=== PATIENT | female | born 1965 | race African-American/Black ===

== ENCOUNTER → 2022-06-26 09:25 | Outpatient (CLI) | payer OTHER, SELFPAY ==
[2022-06-26 10:39] LABS: COVID19 -Nasal RAPID Negative (Negative)
== END ==
PROVIDERS: PCP Family Medicine; Visit Provider Surgery
DX: Z20.822 Contact with and (suspected) exposure to COVID-19 (principal); Z01.812 Encounter for preprocedural laboratory examination
CPT/HCPCS: 87635; C9803

== ENCOUNTER 2022-06-27 10:48 | Day surgery (SDC) | payer OTHER, SELFPAY ==
--- NOTE | 2022-06-27 | PATH_ITS ---
[facility] Accession Number: [id number] . 01 Material submitted: . colon - CECUM POLYP . 01 Diagnosis: Cecal Polyp, Biopsy: Tubulovillous adenoma. No high-grade dysplasia or malignancy. [facility] 07/02/2022 1649 Local . 01 Electronically signed: . Destiny Aj MD, Pathologist NPI- [id number] . 01 Gross description: . CECUM POLYP: Received in formalin are 2 fragment(s) of mcginnis, soft tissue measuring 0.7 x 0.5 x 0.3 cm to 0.4 x 0.3 x 0.1 cm submitted entirely in 1 cassette(s) /CPE 06/29/2022 0550 Local . 01 Pathologist provided ICD-10: D12.0 . 01 CPT . 582760 Performed at: 01 [facility] [address] [place] [address] [id number] MD Hernandez Perry MD Phone: [phone]
[2022-06-27 11:21] VITALS: BMI 32.3
--- NOTE | 2022-06-27 11:21 | P.HP_ITS ---
History of Present Illness History of Present Illness Date Patient Seen: 06/27/22 Time Patient Seen: 11:21 Chief complaint: DX COLONOSCOPY W/POSS BX Narrative: I reviewed my recent office note. No significant changes. Patient History Medical History Colon polyps Hiatal hernia Hypertension Lump of right breast Migraine Surgical History History of cholecystectomy History of myomectomy Meds Home Medications and Allergies Home Medications Medication Instructions Recorded Confirmed Type amlodipine 5 mg tablet 5 mg PO DAILY 06/27/22 06/27/22 History aspirin 81 mg capsule 81 mg PO DAILY 06/27/22 06/27/22 History losartan 100 mg tablet 100 mg PO DAILY 06/27/22 06/27/22 History Allergies Allergy/AdvReac Type Severity Reaction Status Date / Time No Known Drug Allergies Allergy Verified 06/27/22 11:14 Review of Systems Review of Systems ROS: Yes All systems reviewed with the patient and are negative except as otherwise documented Exam Const General: cooperative HENMT Head: normal to inspection Eyes General: appearance normal, both eyes and all related structures Neck Neck: normal visual inspection Chest Chest: normal inspection of the chest Resp Effort & Inspection: normal respiratory effort Cardio Rate: regular rate GI Inspection: normal to inspection Skin General: no rashes or lesions noted Neuro General: patient alert and patient awake Extrem General: normal to inspection and no pedal edema Psych Appearance: grossly normal Assessment & Plan Assessment & Plan narrative: 57-year-old female with a large cecal tubulovillous adenoma due for surveill ance. Colonoscopy is planned for today. Time Spent With Patient Critical Care time: I spent a total of [] minutes of critical care time on this patient's care today; this time is exclusive of procedural time.
--- NOTE | 2022-06-27 11:23 | PM.PREOP ---
Pre-operative Note COVID-19 COVID-19 status: Negative Result date/Date tested (Pos, Neg/Pending): 06/26/22 Criteria for continued procedure: Possibility delay results in more complex future surgery or treatment Interval Note History & Physical reviewed/Exam performed by Physician: Yes Changes to H&P: No ASA Class (for procedural sedation): II
[2022-06-27 11:29] VITALS: BP 111/78; PULSE 65; RESP 20; TEMP 36.6; O2SAT 100
[2022-06-27] MEDS: SODIUM CHLORIDE 0.9% 1,000 ML 84 ML IV (11:41)
--- NOTE | 2022-06-27 13:01 | PM.OP.COLON ---
Operative Date/Time/Diagnoses Date of procedure: 06/27/22 Time of procedure: 13:01 Pre-op diagnosis: History of cecal tubulovillous adenoma Post-op diagnosis: same Procedure & Clinicians Study performed: Colonoscopy with hot snare polypectomy Same procedure as scheduled: Yes Indications: History of cecal tubulovillous adenoma Surgeon: Irving Sharpe Procedure Notes SCOAP/Timeout: Done Procedure in detail: After the risks and benefits were explained, written and verbal informed consent was obtained. The patient was brought into the procedure room and placed into the left lateral decubitus position. Please see nurse hse coordinator notes for sedation details. Digital rectal examination was accomplished. The scope was introduced into the patient and advanced under direct visualization to the cecum as identified by the appendiceal orifice and ileocecal valve. The scope was slowly withdrawn to carefully examine the mucosa for any defects or lesions. Comprehensive imaging was accomplished throughout the rectum including the dentate line. The colon was decompressed, the scope was then removed from the patient who tolerated the procedure well. Adult colonoscope Bowel prep adequate Scope withdrawal time: 11 minutes Sedation minutes: 20 Complications: none Impression: There was a 7-8 mm sessile residual polyp in the cecum adjacent prior scarring. This was removed with hot snare polypectomy. Obvious tattoo placement was noted in the cecum. No additional mucosal pathology appreciated there or elsewhere. Mild internal hemorrhoids noted. Endoscopic diagnosis 1. Cecal polyp 2. Grade 1 internal hemorrhoids Post-procedure Plan for aftercare: 1. Await histopathology. 2. Repeat colonoscopy 3 years Disposition: PACU
[2022-06-27 13:06] VITALS: BP 127/82; PULSE 78; RESP 16; TEMP 36.6; O2SAT 99
[2022-06-27 13:11] VITALS: BP 128/80; PULSE 75; RESP 16; O2SAT 99
[2022-06-27 13:16] VITALS: BP 130/78; PULSE 74; RESP 16; O2SAT 99
[2022-06-27 13:25] VITALS: BP 128/68; PULSE 75; RESP 16; O2SAT 99
== END 2022-06-27 13:30 | disposition home or self-care (01) ==
PROVIDERS: PCP Family Medicine; Referring Provider Internal Medicine Gastroenterology; Visit Provider Internal Medicine Gastroenterology
PROC: 0DJD8ZZ Inspection of Lower Intestinal Tract, Via Natural or Artificial Opening Endoscopic (ICD-10-PCS; CPT 45378; principal; 2022-06-27 12:30)
DX: Z12.11 Encounter for screening for malignant neoplasm of colon (principal); Z86.010 Personal history of colon polyps; K64.0 First degree hemorrhoids; D12.0 Benign neoplasm of cecum
CPT/HCPCS: 45385; J1200; J2704

== ENCOUNTER 2022-12-15 09:09 | Emergency (ER) | payer OTHER, SELFPAY ==
[2022-12-15 09:10] VITALS: BP 184/99; PULSE 75; RESP 18; TEMP 36.4; O2SAT 99; BMI 32.9
[2022-12-15 09:15] VITALS: BP 184/99; PULSE 74; O2SAT 96
[2022-12-15 09:30] VITALS: PULSE 68; O2SAT 98
[2022-12-15 09:33] VITALS: BP 156/84; PULSE 59; O2SAT 99
--- NOTE | 2022-12-15 09:49 | ED.ABDPAIN ---
HPI - Abdominal Pain General Chief Complaint: Abdominal Pain Stated Complaint: stomach cramping x2wks; bloating Time Seen by Provider: 12/15/22 09:49 Source: patient Mode of arrival: Ambulatory Limitations: no limitations History of Present Illness HPI narrative: This is a 57-year-old female with history of hypertension on losartan and amlodipine, prior fibroids with prior myomectomy, embolization, polyp removal on colonoscopy with complaint of bloating and abdominal discomfort for 1-2 weeks. Patient states she is not really painful but she feels bloated and very full she denies fevers or chills. She is had some nausea but no vomiting. She denies chest pain or shortness of breath. Patient states she is been having bowel movements she did have some episodes of diarrhea last Saturday and had 1 episode yesterday. She is not been having any black or bloody stools she has not been having persistent or regular diarrhea for the last 1-2 weeks. She has noticed some frequency sense of decreased amount of urine but urinating more frequently. She denies urgency. She is had a little bit of dysuria. She states there has been some discomfort in the vaginal area but no discharge. No vaginal bleeding. Patient states no tobacco, alcohol 1 glass nightly, no illicit. She currently follows with Dr. Rothman for primary care. Related Data Home Medications Medication Instructions Recorded Confirmed amlodipine 5 mg tablet 5 mg PO DAILY 06/27/22 12/15/22 losartan 100 mg tablet 100 mg PO DAILY 06/27/22 12/15/22 Allergies Allergy/AdvReac Type Severity Reaction Status Date / Time No Known Drug Allergies Allergy Verified 12/15/22 09:22 Review of Systems Review of Systems ROS Unobtainable: All systems reviewed & are unremarkable except as noted in HPI and below Patient History Medical History Colon polyps Hiatal hernia Hypertension Lump of right breast Migraine Surgical History History of cholecystectomy History of myomectomy Social History household members: none Smoking Status: Never smoker alcohol intake: current Smoking Status: Never smoker alcohol intake frequency: a few times a week Substance Use Type: does not use Exam Narrative Exam Narrative: GENERAL: Alert and oriented x three, well-appearing female in mild distress. HEENT: Head normocephalic, atraumatic, EOMI, pupils reactive, face symmetric, moist mucous membranes NECK: Supple, full range of motion CARDIOVASCULAR: Regular rate and rhythm without murmurs, rubs or gallops. RESPIRATORY: Breath sounds equal bilaterally, no wheezes rales or rhonchi. ABDOMEN: Soft, nontender. Mildly distended. Normoactive bowel sounds all 4 quadrants. No guarding or rebound, rigidity, no mass, no bruit or pulsatile mass. : No CVA tenderness bilaterally. EXTREMITIES: Normal range of motion, no clubbing or edema. Neurovascularly intact NEUROLOGICAL: Cranial nerves II through XII grossly intact. Moving all extremities SKIN: Warm, dry, no petechiae, no rashes or lesions. Initial Vital Signs Initial Vital Signs: Vital Signs Temperature 97.6 F 12/15/22 09:10 Pulse Rate 75 12/15/22 09:10 Respiratory Rate 18 12/15/22 09:10 Blood Pressure 184/99 H 12/15/22 09:10 Pulse Oximetry 99 12/15/22 09:10 Oxygen Delivery Method Room Air 12/15/22 09:10 Course Orders Ordered: Discontinued Medications Methylprednisolone (Methylprednisolone 125 Mg/2 Ml Vial) 125 mg IV NOW ONE Stop: 12/15/22 12:33 Morphine Sulfate (Morphine 4 Mg/Ml Inj) 4 mg IV NOW ONE Stop: 12/15/22 12:33 Ondansetron HCl (Ondansetron 4 Mg/2 Ml Inj) 4 mg IV NOW PRN PRN Reason: Nausea And Vomiting Vital Signs Vital signs: Vital Signs - 8 hr 12/15/22 09:10 Temperature 97.6 F Pulse Rate 75 Respiratory Rate 18 Blood Pressure 184/99 H Pulse Oximetry 99 Oxygen Delivery Method Room Air MDM - Abdominal Pain Lab Data 12/15/22 09:50 12/15/22 09:50 Labs: Lab Results 12/15/22 12/15/22 Range/Units 09:50 09:50 WBC 7.6 (4.5-11.0) X10^3/uL RBC 4.63 (4.0-5.2) X10^6/uL Hgb 14.4 (12.0-16.0) g/dL Hct 42.6 (36-46) % MCV 92.1 (80-100) fL MCH 31.0 (26-34) PG MCHC 33.7 (30-36) % RDW 14.0 (11.6-14.8) % Plt Count 212 (150-400) X10^3/uL Neut % (Auto) 73.3 (50-75) % Lymph % (Auto) 18.9 L (25-40) % [place] % (Auto) 6.8 (3-14) % Eos % (Auto) 0.6 L (2-4) % Baso % (Auto) 0.4 (0-2) % Neut # (Auto) 5600 (0467-0539) /uL Lymph # (Auto) 1400 (8296-8842) /uL [place] # (Auto) 500 (0-900) /uL Eos # (Auto) 0 (0-450) /uL Baso # (Auto) 0 (0-100) /uL Sodium 136 L (137-145) mmol/L Potassium 4.2 (3.4-5.1) mmol/L Chloride 104 (98-107) mmol/L Carbon Dioxide 28 (22-32) mmol/L BUN 10 (7-17) mg/dL Creatinine 0.58 (0.52-1.04) mg/dL Estimated GFR > 60 (>60) mL/min BUN/Creatinine Ratio 17.2 (6-22) Glucose 84 (70-100) mg/dL Calcium 8.9 (8.4-10.2) mg/dL Total Bilirubin 0.7 (0.2-1.3) mg/dL AST 34 (14-36) IU/L ALT 30 (<35) IU/L Alkaline Phosphatase 68 (38-126) U/L Total Protein 7.4 (6.3-8.2) g/dL Albumin 4.4 (3.5-5.0) g/dL Globulin 3.0 (1.7-4.1) g/dL Albumin/Globulin Ratio 1.5 (1.0-2.8) Lipase 115 (23-300) U/L Point of care testing: Urine Dip Bedside Urine Glucose Negative Bedside Urine Bilirubin - Negative Bedside Urine Ketone - Negative Urine Specific [place] 1.005 Bedside Urine Occult Blood - Negative Bedside Urine pH 7.0 Bedside Urine Protein - Negative Bedside Urine Urobilinogen - Negative Bedside Urine Nitrite - Negative Bedside Urine Leukocytes - Negative Esterase Imaging Data CT scan - abdomen/pelvis: Radiologist's Impression: [address] [address] [address] Scan Report Signed Patient: Merna Gutierrez MR#: [id number] : 1965 Acct:[id number] Age/Sex: 57 / F Date of Service: 12/15/22 Loc: ED Accession Number: [id number] ?? Procedure: CT abdomen pelvis wo con Ordering Provider: Tanesha Sarkar D.O. PROCEDURE:? CT ABDOMEN PELVIS WO CON ? INDICATIONS:? bloating, n, hx of polyp, myomectomy ? TECHNIQUE:? Noncontrast 5 mm thick sections acquired from the diaphragms to the symphysis.? 5 mm coronal and sagittal reformats were then performed.? For radiation dose reduction, the following was used:? automated exposure control, adjustment of mA and/or kV according to patient size.? ? COMPARISON:? None. ? FINDINGS:? Image quality:? Excellent.? ? ABDOMEN:? Lung bases:? Lung bases are clear.? Heart size is normal.? ? Solid organs:? Liver is normal in size.? Multiple fluid densities throughout the liver with large indeterminate density within the left lobe.? Gallbladder is not identified.? Pancreas is normal in contours.? Spleen is normal in size.? No adrenal nodules.? Kidneys are normal in size, without hydronephrosis or nephrolithiasis.? ? Peritoneum and bowel:? Unenhanced bowel loops demonstrate normal wall thickness and caliber.? No free fluid or air.? ? Nodes and vessels:? No retroperitoneal or mesenteric adenopathy by size criteria.? Aorta and inferior vena cava are normal in caliber.? ? Miscellaneous:? No ventral hernias.? ? ? PELVIS:? Genitourinary:? Bladder wall thickness is normal.? ? Miscellaneous:? No inguinal hernias or adenopathy.? ? Bones:? No suspicious bony lesions.? No vertebral body compression fractures.? ? IMPRESSION:? No acute findings within the abdomen or pelvis to explain patient's symptoms. Multiple densities throughout the liver are favored to represent hepatic cysts however given left lobe indeterminate density, consider dedicated outpatient CT or MRI. ? ? Dictated by: Johan Brizuela M.D. on 12/15/2022 at 11:32 ? ? Approved by: Johan Brizuela M.D. on 12/15/2022 at 11:39? [facility] Narrative Medical decision making narrative: This is a 57-year-old female with complaint of abdominal bloating some discomfort some nausea also little bit of urinary frequency with complaint of decreased output. Patient has been afebrile. She is slightly hypertensive today. Patient has had prior myomectomy, embolization for fibroids she has also had polyp removal for villous adenoma in the past on colonoscopy. Patient urine does not show any clear signs of infection. She has had some discomfort but no labs overall are reassuring sodium was 136, lymphs are slightly low at 18.9. With patient's surgical history CT abdomen pelvis was ordered, patient had very difficult IV access do not feel that she necessitates a central line for her CT will use oral contrast and hold off on IV. Labs overall are reassuring. CT shows some possible hepatic cysts but no other changes. Discussed findings with patient can follow-up for outpatient CT or MRI with primary care. Discharge Plan Departure Patient Disposition: Home Clinical Impression: Abdominal bloating Activity Restrictions/Additional Instructions: Please follow-up with your physician for recheck, call to set up an appointment. Your labs and imaging today did not show a clear cause of your symptoms today but there are some changes to your liver that are likely hepatic cysts but can be followed up outpatient with dedicated hepatic CT or MRI. Please return for fevers, new or worsening abdominal pain, persistent vomiting, black or bloody stools or other new or concerning changes. Prescriptions: No Action amlodipine 5 mg tablet 5 mg PO DAILY Patient Comments: TAKE 1 TABLET BY MOUTH EVERY DAY losartan 100 mg tablet 100 mg PO DAILY Patient Comments: TAKE 1 TABLET BY MOUTH DAILY Referrals: Johan Rothman DO [Primary Care Provider] - Stand Alone Forms: Patient Portal/API
[2022-12-15 10:02] LABS: Add Manual Diff / Slide Review NO; Basophils Absolute Auto 0 /uL (0-100); Basophils Percent Auto 0.4 % (0-2); Eosinophils Absolute Auto 0 /uL (0-450); Eosinophils Percent Auto 0.6 % (2-4); Hematocrit 42.6 % (36-46); Hemoglobin 14.4 g/dL (12.0-16.0); Lymphocytes Absolute Auto 1400 /uL (1100-4500); Lymphocytes Percent Auto 18.9 % (25-40); Mean Corpuscular HGB Conc 33.7 % (30-36); Mean Corpuscular Volume 92.1 fL (80-100); Monocytes Absolute Auto 500 /uL (0-900); Monocytes Percent Auto 6.8 % (3-14); Neutrophils Absolute Auto 5600 /uL (1500-7000); Neutrophils Percent Auto 73.3 % (50-75); Platelet Count 212 X10^3/uL (150-400); Red Blood Cell Count 4.63 X10^6/uL (4.0-5.2); White Blood Cell Count 7.6 X10^3/uL (4.5-11.0)
[2022-12-15 10:13] LABS: Alanine Aminotransferase 30 IU/L (<35); Albumin 4.4 g/dL (3.5-5.0); Albumin Globulin Ratio 1.5 (1.0-2.8); Alkaline Phosphatase 68 U/L (38-126); Aspartate Aminotransferase 34 IU/L (14-36); BUN Creatinine Ratio 17.2 (6-22); Bilirubin Total 0.7 mg/dL (0.2-1.3); Blood Urea Nitrogen 10 mg/dL (7-17); Calcium 8.9 mg/dL (8.4-10.2); Carbon Dioxide 28 mmol/L (22-32); Chloride 104 mmol/L (98-107); Estimated Glomerular Filt Rate > 60 mL/min (>60); Glucose 84 mg/dL (70-100); HEMOLYSIS 22 (0-50); Lipase 115 U/L (23-300); Potassium 4.2 mmol/L (3.4-5.1); Sodium 136 mmol/L (137-145); Total Protein 7.4 g/dL (6.3-8.2)
--- NOTE | 2022-12-15 10:33 | DI.CT.S_ITS ---
PROCEDURE: CT ABDOMEN PELVIS WO CON INDICATIONS: bloating, n, hx of polyp, myomectomy TECHNIQUE: Noncontrast 5 mm thick sections acquired from the diaphragms to the symphysis. 5 mm coronal and sagittal reformats were then performed. For radiation dose reduction, the following was used: automated exposure control, adjustment of mA and/or kV according to patient size. COMPARISON: None. FINDINGS: Image quality: Excellent. ABDOMEN: Lung bases: Lung bases are clear. Heart size is normal. Solid organs: Liver is normal in size. Multiple fluid densities throughout the liver with large indeterminate density within the left lobe. Gallbladder is not identified. Pancreas is normal in contours. Spleen is normal in size. No adrenal nodules. Kidneys are normal in size, without hydronephrosis or nephrolithiasis. Peritoneum and bowel: Unenhanced bowel loops demonstrate normal wall thickness and caliber. No free fluid or air. Nodes and vessels: No retroperitoneal or mesenteric adenopathy by size criteria. Aorta and inferior vena cava are normal in caliber. Miscellaneous: No ventral hernias. PELVIS: Genitourinary: Bladder wall thickness is normal. Miscellaneous: No inguinal hernias or adenopathy. Bones: No suspicious bony lesions. No vertebral body compression fractures. IMPRESSION: No acute findings within the abdomen or pelvis to explain patient's symptoms. Multiple densities throughout the liver are favored to represent hepatic cysts however given left lobe indeterminate density, consider dedicated outpatient CT or MRI. Dictated by: Johan Brizuela M.D. on 12/15/2022 at 11:32 Approved by: Johan Brizuela M.D. on 12/15/2022 at 11:39
[2022-12-15 13:15] VITALS: BP 132/82; PULSE 60; RESP 18; O2SAT 97
== END 2022-12-15 13:16 | disposition home or self-care (01) ==
PROVIDERS: Emergency Provider Emergency Medicine; PCP Family Medicine
DX: R14.0 Abdominal distension (gaseous) (principal); R35.0 Frequency of micturition; R11.0 Nausea
CPT/HCPCS: 36415; 74176; 80053; 81003; 83690; 85025; 93005; 99283; 99284

== ENCOUNTER 2024-06-13 09:59 | Emergency (ER) | payer OTHER, SELFPAY ==
[2024-06-13 10:10] VITALS: BP 171/91; PULSE 86; RESP 16; TEMP 36.8; O2SAT 96; BMI 34.7
[2024-06-13 10:31] LABS: Appearance Urine UA SL CLOUDY; Bilirubin Urine UA NEGATIVE (NEGATIVE); Color Urine UA YELLOW; Glucose Urine UA NEGATIVE (Negative); Ketones Urine UA NEGATIVE (NEGATIVE); Leukocyte Esterase Urine UA 3+ (NEGATIVE); Nitrite Urine UA NEGATIVE (Negative); Occult Blood Urine UA TRACE-INTACT (Negative); Protein Urine UA NEGATIVE (Negative); Urobilinogen Urine UA 0.2 E.U./dL (0.2)
[2024-06-13 10:44] LABS: Bacteria Urine Occasional (0-1); RBC Urine 1-5/HPF (0-5/HPF); Squamous Epithelial Cell Urine 5-10 /HPF (0-5/HPF); Urine Volume 10mL (spun); WBC Urine 10-30/HPF (0-5/HPF)
[2024-06-13 10:45] LABS: Culture Indicated Urine Cult Not Indicated
--- NOTE | 2024-06-13 10:54 | ED_ITS ---
HPI - Female Genitourinary General Chief complaint: Urogenital-Female Stated complaint: bladder issues, cramping and spasms Time Seen by Provider: 06/13/24 10:45 History of Present Illness HPI Narrative: patient 59-year-old female history of hypertension presenting today with vaginal pressure and painful urination. She says it for last 2 days she has had some painful urination she feels like she is some abdominal cramping. But she does feel like something is falling out whenever she bears down. She has no vaginal bleeding. she has never been . Related Data Home Medications Medication Instructions Recorded Confirmed amlodipine 5 mg tablet 5 mg PO DAILY 06/27/22 12/15/22 losartan 100 mg tablet 100 mg PO DAILY 06/27/22 12/15/22 Previous Rx's Medication Instructions Recorded sulfamethoxazole 800 1 tab PO BID 5 days #10 tabs 06/13/24 mg-trimethoprim 160 mg tablet (Bactrim DS) Allergies Allergy/AdvReac Type Severity Reaction Status Date / Time No Known Drug Allergies Allergy Verified 12/15/22 09:22 Patient History Medical History Colon polyps Hiatal hernia Hypertension Lump of right breast Migraine Surgical History History of cholecystectomy History of myomectomy alcohol intake frequency: a few times a week Substance Use Type: does not use Exam Initial Vital Signs Initial Vital Signs: Vital Signs Temperature 98.2 F 06/13/24 10:10 Pulse Rate 86 06/13/24 10:10 Respiratory Rate 16 06/13/24 10:10 Blood Pressure 171/91 H 06/13/24 10:10 Pulse Oximetry 96 06/13/24 10:10 Oxygen Delivery Method Room Air 06/13/24 10:10 GENERAL: Well-appearing, well-nourished and in no acute distress. CARDIOVASCULAR: peripheral pulses in tact, cap refill <2 sec RESPIRATORY: No respiratory distress, speaks in full sentences without difficulty ABDOMEN: Soft, nontender, no guarding or rebound PELVIC: Normal external exam no protrusion appreciated on pelvic exam no bleeding manual exam performed no weakness or bulging EXTREMITIES: Normal range of motion, no clubbing or edema. Neurovascularly intact NEUROLOGICAL: Cranial nerves II through XII grossly intact. Normal gait and speech. SKIN: Warm, dry, no petechiae, no rashes or lesions. Course Orders Ordered: ED Orders 06/13/24 10:19 Urinalysis and Microscopic Stat 06/13/24 10:55 US pelvic complete Stat Vital Signs Vital signs: Vital Signs - 8 hr 06/13/24 10:10 Temperature 98.2 F Pulse Rate 86 Respiratory Rate 16 Blood Pressure 171/91 H Pulse Oximetry 96 Oxygen Delivery Method Room Air MDM - Female Genitourinary Lab Data Labs: Lab Results 06/13/24 Range/Units 10:19 Urine Color Yellow Urine Appearance Sl cloudy Urine pH 7.0 (4.5-8.0) Ur Specific [place] 1.010 (1.000-1.035) Urine Protein Negative (Negative) Urine Glucose (UA) Negative (Negative) g/dL Urine Ketones Negative (NEGATIVE) Urine Occult Blood Trace-intact (Negative) Urine Nitrate Negative (Negative) Urine Bilirubin Negative (NEGATIVE) Urine Urobilinogen 0.2 (0.2) E.U./dL Ur Leukocyte Esterase 3+ H (NEGATIVE) Urine RBC 1-5/hpf (0-5/HPF) Urine WBC 10-30/hpf H (0-5/HPF) Ur Squamous Epith Cells 5-10 /hpf H (0-5/HPF) Urine Bacteria Occasional (0-1) (None) Ur Culture Indicated? Cult not indicated Vol Urine Centrifuged 10ml (spun) Urine Dip Bedside Urine Glucose Negative Bedside Urine Bilirubin - Negative Bedside Urine Ketone - Negative Urine Specific [place] 1.010 Bedside Urine Occult Blood +/- Bedside Urine pH 7.0 Bedside Urine Protein - Negative Bedside Urine Urobilinogen - Negative Bedside Urine Nitrite - Negative Bedside Urine Leukocytes +++ 500 Esterase Imaging Data US - BILLING REP: Radiologist's Impression: PROCEDURE: US PELVIC COMPLETE INDICATIONS: pressure increase pain TECHNIQUE: Real-time scanning was performed of the pelvic organs, with image documentation. Additional endovaginal scanning was necessary due to incomplete visualization of the adnexal and endometrial structures by transabdominal scanning. COMPARISON: None. FINDINGS: Uterus: Uterus is retroverted and normal in size at 5.9 x 6.6 x 4.0 cm. The myometrium is heterogeneous. The endometrium measures 8 mm combined thickness. Multiple intrauterine fibroids noted. There is 1 intramural fibroid visualized in the right/midline fundus measuring 3.3 x 3.1 x 3.0 cm. Another midline anterior intramural fibroid measures 1.2 x 1.4 x 1.1 cm. An additional left anterior intramural uterine fibroid measuring 1.8 x 2.4 x 1.8 cm. Another left posterior intramural uterine fibroid measuring 1.0 x 1.8 x 1.1 cm. Ovaries: Bilateral ovaries were not well visualized on this study. There is a simple appearing left adnexal cyst measuring 4.3 x 2.9 x 1.9 cm with suspected small adjacent cyst. Other: No pathologic free abdominal or pelvic fluid. IMPRESSION: Pelvic ultrasound without acute sonographic abnormalities. Multi fibroid uterus. Bilateral ovaries not well seen on this examination. There is a 4.3 cm simple appearing left adnexal cyst. If there are persistent symptoms and clinical concern, consider follow-up pelvic ultrasound in 6-12 weeks for further evaluation and to document stability of this cyst. We strive to produce accurate, complete, and clear reports of imaging services. To assist us in improving patient care, this report was composed using standard report templates and voice recognition software. Therefore, it may contain abnormal punctuation, insertions and/or omissions. Occasional wrong-word or sound-alike substitutions may occur. Though we review the report and make efforts to correct it, we do recommend that the report be read carefully in proper context to recognize any text inaccuracies. Dictated by: Juan Chaparro M.D. on 06/13/2024 at 11:58 Approved by: Juan Chaparro M.D. on 06/13/2024 at 12:03 [facility] Narrative Medical decision making narrative: Patient 51-year-old female presents today with burning sensation with urination she feels pressure like something might be falling. On exam there is no evidence of prolapse. No evidence of yeast infection. No foul smell to suggest a bacterial vaginosis. Urinalysis is very positive for leukocytes Ultrasound shows fibroids but no other abnormalities Patient appears well nontoxic. She is requesting Bactrim as her antibiotic. I have informed her that Bactrim can cause an increase in potassium along with her losartan. Recommended that she not take her losartan she is taken any antibiotics or to have her labs checked. Discharge Plan Departure Patient Disposition: Home Clinical Impression: Fibroid, uterine, Urinary tract infection Instructions: DI for Urinary Tract Infection (UTI) Activity Restrictions/Additional Instructions: *You have been diagnosed with UTI uterine fibroids *What to do: If you do not get better with antibiotics you may require evaluation with die cutter *Continue to take medications as directed Bactrim 1 tablet twice a day for 5 days (this can interact with your blood pressure medicine-losartan.) *Follow up with your primary care provider in 2-3 days or call [phone] *Return to ER if you should have increasing pain pressure bleeding or any new, worsening or concerning symptoms Prescriptions: New sulfamethoxazole-trimethoprim [Bactrim DS] 800-160 mg tablet 1 tab PO BID 5 Days Qty: 10 0RF No Action amlodipine 5 mg tablet 5 mg PO DAILY Patient Comments: TAKE 1 TABLET BY MOUTH EVERY DAY losartan 100 mg tablet 100 mg PO DAILY Patient Comments: TAKE 1 TABLET BY MOUTH DAILY Referrals: Johan Rothman DO [Primary Care Provider] - Stand Alone Forms: Patient Portal/API
[2024-06-13 13:24] VITALS: BP 168/72; PULSE 78; RESP 18; O2SAT 100
== END 2024-06-13 13:25 | disposition home or self-care (01) ==
PROVIDERS: Emergency Provider Emergency Medicine; PCP Family Medicine
DX: D25.1 Intramural leiomyoma of uterus (principal); N39.0 Urinary tract infection, site not specified; R10.9 Unspecified abdominal pain
CPT/HCPCS: 76830; 76856; 81001; 81003; 99282; 99283

== ENCOUNTER 2025-05-17 11:46 | Day surgery (SDC) | payer OTHER, SELFPAY ==
--- NOTE | 2025-05-17 12:19 | PM.HP.IH.1 ---
History of Present Illness History of Present Illness Date Patient Seen: 05/17/25 Chief complaint: Screening Colonoscopy Narrative: History of large adenomatous colon polyps [facility] Medical History Colon polyps Hiatal hernia Hypertension Lump of right breast Migraine Surgical History History of cholecystectomy History of myomectomy Social History household members: none alcohol intake: current Meds Home Medications and Allergies Home Medications ?Medication ?Instructions ?Recorded ?Confirmed ?Type amlodipine 5 mg tablet 5 mg PO DAILY 06/27/22 12/15/22 History losartan 100 mg tablet 100 mg PO DAILY 06/27/22 12/15/22 History peg 3350-electrolytes 236 240 ml PO Q10M #4,000 mL 04/07/25 Rx gram-22.74 gram-6.74 gram-5.86 gram solution (Golytely) Allergies Allergy/AdvReac Type Severity Reaction Status Date / Time No Known Drug Allergies Allergy Verified 12/15/22 09:22 Exam Narrative Exam Narrative: Oropharynx free of lesions Chest clear to auscultation percussion Cardiac exam reveals no S3 or murmur Assessment & Plan Assessment & Plan narrative: History of large adenomatous colon polyps with reportedly even tattooing performed. Need for follow-up colonoscopy. Risks, benefits, alternatives have been explained. Time-Based Coding :: [TOTAL MINUTES] spent with patient and on the chart (including review of chart, obtaining history, exam, reviewing outside data, placing orders, documenting exam and treatment plan, and counseling patient) on [DATE]. [employer] Document charge(s): No
[2025-05-17] MEDS: LACTATED RINGERS 1,000 ML 42 ML IV (12:20)
--- NOTE | 2025-05-17 12:21 | PM.OP.COLON ---
Operative Date/Time/Diagnoses Date of procedure: 05/17/25 Time of procedure: 13:22 Pre-op diagnosis: See indication and findings Post-op diagnosis: same Procedure & Clinicians Study performed: Colonoscopy Same procedure(s) as scheduled: Yes Surgeon: Addison Lawson Anesthesia Type: Retrobulbar block and Other Procedure Notes Procedure in detail: After informed consent was obtained the patient was placed in left lateral decubitus position. The video colonoscope was introduced the rectum slowly advanced to the cecum. Preparation was good. On slow withdrawal mucosa was carefully examined. The scope was removed. The patient tolerated procedure well. Blood loss none Complications none Findings 1. Large tattoo and cecum otherwise normal mucosa 2. Normal colonoscopy to cecum otherwise Patient should have follow-up colonoscopy in 3-5 years
[2025-05-17 12:27] VITALS: BP 152/93; PULSE 72; RESP 18; TEMP 36.2; O2SAT 98
[2025-05-17 13:22] VITALS: BP 113/55; PULSE 64; RESP 97; TEMP 36.2; O2SAT 21
[2025-05-17 13:25] VITALS: BP 108/57; PULSE 65; RESP 23; O2SAT 97
== END 2025-05-17 14:09 | disposition home or self-care (01) ==
PROVIDERS: PCP Family Medicine; Referring Provider Internal Medicine Gastroenterology; Visit Provider Internal Medicine Gastroenterology
PROC: 0DJD8ZZ Inspection of Lower Intestinal Tract, Via Natural or Artificial Opening Endoscopic (ICD-10-PCS; CPT 45378; principal; 2025-05-17 13:30)
DX: Z12.11 Encounter for screening for malignant neoplasm of colon (principal); Z86.0101 Personal history of adenomatous and serrated colon polyps
CPT/HCPCS: 45378; J2704